=== PATIENT | male | born 1960 | race Two or more races ===

== ENCOUNTER 2024-10-11 11:26 | Emergency (ER) | payer OTHER ==
[~2024-10-11] VITALS: Ht 172.7 cm; Wt 88.5 kg
[2024-10-11] MEDS ORDERED: [UNRECOGNIZED DRUG - OTHER] (12:19)
[2024-10-11] MEDS ORDERED: CLONIDINE HCL 0.1 MG TABLET PO ONE (13:45)
[2024-10-11] MEDS ORDERED: cloNIDine HCL 0.3 MG TABLET PO ONE (15:15)
== END 2024-10-11 16:36 | disposition home or self-care (01) ==
LOC: ER 11:28
DX: I10 Essential (primary) hypertension (principal)